=== PATIENT | female | born 1995 | race Caucasian/White ===

== ENCOUNTER → 2019-05-21 | Day surgery (SDC) | payer OTHER ==
[~2019-05-21] MED LIST: ACETAMINOPHEN 1000 MG/100 ML IV ONE; ADIPEX-P37.5 M1 PO; BACITRACIN 50,000 UNIT VIAL ONE; CEFAZOLIN SOD 1 GM/NS 50ML 50 ML IV ONE; DEXAMETHASONE SOD PHOS INJ 4 MG/ML VIAL ONE; FENTANYL CITRATE/PF 100MCG/2 ML INJ ONE; HYDROCODONE/APAP 5MG-325MG TAB ONE; HYDROXYZINE HCL25 MG PO; KETOROLAC TROMETHAMINE 30 MG/ML VIAL ONE; LIDOCAINE HCL 2% LOCAL INJ 5 ML SDV VIAL INJ ONE; MEPERIDINE HCL INJ 25 MG/ML VIAL ONE; MIDAZOLAM 2MG/1ML ORAL LIQUID ONE; MIDAZOLAM HCL 2 MG/2 ML VIAL ONE; ONDANSETRON HCL INJ 2MG/ML 2ML 2 MG/ML VIAL ONE; PROPOFOL IV EMULSION 10 MG/ML 20 ML VIAL ONE; SEVOFLURANE INHAL SOLN 250 ML PEN BTL ONE
[2019-05-21 16:05] VITALS: BP 111/65
--- NOTE | 2019-05-21 23:25 | Operative Report ---
DATE OF PROCEDURE: 05/21/2019 SURGEON: Kvng Dillon MD PREOPERATIVE DIAGNOSIS: Macromastia. POSTOPERATIVE DIAGNOSIS: Macromastia. PROCEDURES: Bilateral breast reduction. ANESTHESIA: General. HISTORY: The patient is a 23-year-old, 0, para 0 female, who has lost some 75 to 80 pounds. She complains of symptomatic macromastia. Note is made of the right breast which is significantly larger than the left and there is a lateral displacement of both nipple areolar complexes away from the midline to both breasts. Risks, benefits, and alternatives were discussed with the patient. The patient has signed the [employer] consent form for bilateral breast reduction. PROCEDURE IN DETAIL: The patient was marked preoperatively in the holding area in the upright position using standard inferior pedicle Maria pattern technique. She was brought to the operating theater and after the induction of adequate general anesthesia, placement of a Rubio catheter and Venodyne compression boots, she was prepped and draped in a supine position. The procedure was begun by circumscribing both nipple-areolar complexes with a 45 mm cookie cutter. A 12 cm wide pedicles were designed to maximize the vascularity of the nipple-areolar complexes. They were skewed laterally in order to achieve the nipple-areolar complex to be within the middle of the pedicle. At this point, both pedicles were then de-epithelialized sharply down to the inframammary fold. The wound bed was made hemostatic using the electrocautery. The medial and lateral borders of the pedicle were developed by incising through the dermis and the subcutaneous and breast tissue using electrocautery. Care was taken to ensure that the cuts were vertically oriented and the pedicles were not undermined. The dissection continued all the way to the prepectoral fascia of the chest wall. At this point, once the medial and lateral borders of the pedicles were developed, a curvilinear pattern to the pedicle was developed ensuring that there were several centimeters of tissues cephalad to the nipple-areolar complexes to maintain vascularity. Once the entire pedicle had been released from the surrounding tissue, the dissection in the prepectoral plane continued widely in order to allow the tissues to redrape without tension. This was performed with electrocautery. Hemostasis was continuously achieved throughout the case utilizing the electrocautery. At this point, the medial and lateral triangles were incised through the skin and subcutaneous tissue sharply, and using the electrocautery, the medial and lateral triangles were then dissected in full-thickness and removed. The remaining central keyhole pattern was incised through the skin and subcutaneous tissues. Bleeding controlled using electrocautery and the electrocautery used to deepen the dissection full-thickness through the anterior chest wall. At this point, the flaps were elevated vertically and they were judiciously thinned with a curved Ames scissors. Both pockets were then irrigated copiously with bacteriostatic saline and hemostasis was made absolute using the electrocautery. The flaps were brought over the top of the pedicle and secured temporarily with surgical clips. The patient was assessed for symmetry and it was noted that several adjustments were required in order to achieve a satisfactory symmetric result. The patient was made supine. The surgical clips were removed and some more tissue was resected where it was marked out. Once again, the pockets were irrigated. Hemostasis was made absolute and the ends of the flaps temporarily tacked closed with surgical clips. The patient was then sat up and it was noted that there was good symmetry between both sides and good contour of both breasts. The final resected weight on the right side was 750 g and on the left side, 624 g. The patient was made supine. The surgical clips were removed. The pedicles were inspected. The wounds were inspected for hemostasis and there was noted to be good vascularity to the nipple-areolar complex and no kinking or twisting of the pedicles. At this point, the incisions were closed in layers as follows. 3-0 Monocryl was used in an interrupted buried fashion to approximate the deep dermis and 4-0 Monocryl was used in a running subcuticular fashion to close the superficial tissues and 1 inch Steri-Strips were applied to all the incisions. Sterile dressings were applied over the Steri-Strips. The patient was then placed in a postsurgical gently compressing bra. Estimated blood loss for the procedure was approximately 150 to 200 mL. She has tolerated the procedure well and was brought to recovery in satisfactory condition and then discharged with a postoperative instruction sheet as well as a followup appointment. MD BRO Rosa/CATY /[id number]
== END | disposition home or self-care (01) ==
LOC: OR 05:31
PROVIDERS: ATTEND Plastic Surgery
DX: N62 Hypertrophy of breast (principal); F41.9 Anxiety disorder, unspecified; F32.9 Major depressive disorder, single episode, unspecified; Z88.1 Allergy status to other antibiotic agents; Z88.2 Allergy status to sulfonamides; Z87.891 Personal history of nicotine dependence
CPT/HCPCS: 19318; 81025; 88305; J0131; J0690; J1100; J1885; J2001; J2175; J2250; J2405; J2704; J3010